=== PATIENT | female | born 1960 | race Caucasian/White ===

== ENCOUNTER 2016-12-03 16:47 | Inpatient (IN) | payer OTHER ==
--- NOTE | 2016-12-03 17:28 | PROVIDER DOCUMENTATION ---
HPI-Neurological Disorder - General Source: family - History of Present Illness-Neuro Onset/Duration: reports: this morning Timing: reports: still present Context: reports: impaired speech, facial droop Character of Altered Mental Status: reports: disoriented, confused Character of Deficits: reports: new weakness, impaired speech New weakness or altered sensation location:: reports: RUE, RLE, LUE, LLE, right facial Cognitive Baseline: alert but disoriented Associated Symptoms: reports: neck/back pain, paresthesia, slurred speech, trouble walking Similar Symptoms Previously?: Yes - Seizure First time to have a seizure?: No <Pily Mckay - Last Filed: 12/03/16 17:53> - General Source: patient, family Unable to obtain history due to:: altered (Hx per son and [id number]) - History of Present Illness-Neuro Severity: reports: severe Onset/Duration: reports: 4-6 hours ago Timing: reports: improving, gone now Context: reports: impaired speech, seizure activity. denies: found unresponsive by family, facial droop, falling Character of Altered Mental Status: reports: disoriented, confused, unresponsive , seizure activity, decreased responsiveness. denies: combative, agitated, trouble concentrating, unchanged from baseline Any recent trauma/injury?: reports: none Character of Deficits: reports: altered sensation, impaired speech, decreased ability to stand, decreased ability to walk. denies: vision problem/glaucoma, impaired swallowing, falling New weakness or altered sensation location:: reports: RUE, RLE, right facial Cognitive Baseline: alert, oriented x3 Associated Symptoms: reports: decreased ability to walk or stand, fainting, confusion, fatigue, loss of consciousness, muscle spasms, numbness in legs/feet , paresthesia, seizures, slurred speech, trouble walking, weakness. denies: short of breath, headache, dizziness, chest pain, neck/back pain, fever/chills, insomnia, nausea, diaphoretic, ringing in ears, sleepy, tingling in legs/feet, vomiting, vision changes Similar Symptoms Previously?: Yes (hx CVA in 2011) - Seizure First time to have a seizure?: No Witnessed seizure?: Yes How many seizure episodes?: 1 Episode details: reports: unknown duration, unknown number Episode Frequency: rare episodes Status Epilepticus: Yes Character of Seizure: reports: lost consciousness, generalized shaking all over , staring. denies: shaking in one area, incontinent of urine, incontinent of stool, stopped breathing Post-ictal Symptoms: reports: confusion, lost power/feeling, speech difficulty. denies: visual disturbance, headache <Chin Meeks - Last Filed: 12/10/16 17:01> - General Chief Complaint: Stroke-Like Symptoms Stated Complaint: Stroke Like Sx Time Seen by Provider: 12/03/16 17:42 Allergies/Adverse Reactions: Patient Allergies Allergy/AdvReac Type Severity Reaction Status Date / Time iodine AdvReac Intermediate HIVES Verified 12/03/16 18:50 latex AdvReac Intermediate SWELLING Verified 12/03/16 18:50 morphine AdvReac Intermediate HIVES Verified 12/03/16 18:50 oxycodone HCl * AdvReac Intermediate HIVES Verified 12/03/16 18:50 [From OxyContin] Penicillins AdvReac Intermediate HIVES Verified 12/03/16 18:50 Sulfa (Sulfonamide AdvReac Intermediate HIVES Verified 12/03/16 18:50 Antibiotics) [Sulfa(Sulfonamide Antibiotics)] Home Medications: Home Medication List Medication Instructions Recorded Confirmed Last Taken Type Clopidogrel [Plavix] 75 mg PO DAILY #30 tablet 07/26/12 12/03/16 08/11/16 Rx Tizanidine HCl [Zanaflex] 4 mg PO 4X09/29/13 12/03/16 08/11/16 History Aspirin 81 mg PO DAILY 01/13/15 12/03/16 08/11/16 History Pantoprazole [Protonix] 40 mg PO DAILY@0700 12/03/16 12/03/16 Unknown History ATORVAstatin [Lipitor] 40 mg PO QHS #60 tablet 12/08/16 Unknown Rx Acetaminophen with Codeine 1 each PO Q6H PRN PRN #0 tablet 12/08/16 Unknown Rx [Tylenol with Codeine #3] Acetaminophen with Codeine 1 each PO Q6H PRN PRN #30 tablet 12/08/16 Unknown Rx [Tylenol with Codeine #3] Brivaracetam [Briviact] 50 mg PO DAILY #60 tablet 12/08/16 Unknown Rx Duloxetine [Cymbalta] 60 mg PO QAM #60 capsule 12/08/16 Unknown Rx LISINOpril [Prinivil] 10 mg PO DAILY #60 tablet 12/08/16 Unknown Rx Lacosamide [Vimpat] 100 mg PO BID #60 tablet 12/08/16 Unknown Rx Levetiracetam [Keppra] 750 mg PO BID #60 tablet 12/08/16 Unknown Rx Oxazepam [Serax] 30 mg PO 4XDAY #120 capsule 12/08/16 Unknown Rx Topiramate [Trokendi Xr] 50 mg PO HS #60 cap.er.24h 12/08/16 Unknown Rx - History of Present Illness-Neuro Nature of Presenting Problem: 56 y/o female presents to the ER via EMS with stroke like symptoms. Pt has right facial asymmetry with bilateral upper and lower extremity weakness. ( Pily Mckay) Review of Systems - Adult - REVIEW OF SYSTEMS - ADULT Constitutional: denies: chills, fever Eyes: reports: no symptoms reported Ears, Nose, Mouth & Throat: reports: no symptoms reported Cardiovascular: reports: no symptoms reported Respiratory: reports: no symptoms reported Gastrointestinal: reports: no symptoms reported Genitourinary: reports: no symptoms reported Musculoskeletal: reports: back pain, muscle weakness Integumentary: reports: no symptoms reported Neurological: reports: numbness, slurred speech Psychiatric: reports: anxiety Endocrine: reports: no symptoms reported Hematologic/Lymphatic: reports: no symptoms reported Allergic/Immunologic: reports: no symptoms reported All Other Systems: Reviewed and Negative <Pily Mckay - Last Filed: 12/03/16 17:53> - REVIEW OF SYSTEMS - ADULT Constitutional: denies: chills, fever, fatique, night sweats, weight gain, weight loss Eyes: reports: decreased vision. denies: discharge, dry eyes, blurred vision, double vision, eye pain, redness Ears, Nose, Mouth & Throat: reports: no symptoms reported Cardiovascular: reports: syncope. denies: chest pain, edema, heart murmur, irregular heart rate, orthopnea, palpitations, poor circulation, PND Respiratory: denies: chronic cough, cough, dyspnea on exertion, excessive sputum production, hemoptysis, pleurisy, shortness of breath, wheezing Gastrointestinal: reports: no symptoms reported Genitourinary: reports: no symptoms reported Musculoskeletal: reports: muscle weakness, other (decreased RU/LE motor strength ). denies: bone pain, back pain, frequent leg cramps, joint pain, joint swelling, muscle aches, neck pain Integumentary: reports: no symptoms reported Neurological: reports: numbness, paresthesia, seizure, slurred speech, syncope, tremors. denies: ataxia, dizziness/vertigo, headache/migraines, loss of balance Psychiatric: reports: no symptoms reported Endocrine: reports: no symptoms reported Hematologic/Lymphatic: reports: no symptoms reported Allergic/Immunologic: reports: no symptoms reported All Other Systems: Reviewed and Negative <Chin Meeks - Last Filed: 12/10/16 17:01> Past History - Adult - PAST MEDICAL HISTORY-ADULT Review of Records: reports: Nursing Assessment Review, Medications Reviewed Musculoskeletal: reports: arthritis, chronic pain, fibromyalgia, intervertebral disc disease Neurological: reports: CVA, speech difficulty Psychiatric: reports: depression - PRIOR SURGERIES/PROCEDURES Surgical/Procedure History: reports: reviewed, not pertinent - PRIOR HOSPITALIZATIONS Prior Hospitalizations: reports: for similar symptoms - IMMUNIZATION STATUS Childhood Immunizations: See Nurse Assessment Flu Vaccine: See Nurse Assessment - FAMILY HISTORY Family History: CAD over 55 yo <Pily Mckay - Last Filed: 12/03/16 17:53> - PAST MEDICAL HISTORY-ADULT Review of Records: reports: Nursing Assessment Review, Medications Reviewed - IMMUNIZATION STATUS Childhood Immunizations: See Nurse Assessment Flu Vaccine: See Nurse Assessment <Chin Meeks - Last Filed: 12/10/16 17:01> Physical Exam- Neurological - Physical Exam-Neuro General Appearance: alert, no apparent distress, slow to respond Eye Exam: bilateral eye: normal inspection, PERRL HENMT: normocephalic/atraumatic, moist mucous membranes Head Injury: no evidence of injury. 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 negative: normal finger to nose Motor/Sensory: weak motor strength RUE, weak motor strength LUE, weak motor strength RLE, weak motor strength LLE Neurologic: aphasia (expressive), facial droop (right sided, worse from baseline per family) Integumentary: normal color, warm/dry Psych/Mental Status: disoriented x 3, anxious - [place]ow Coma Scale Best Eye Response: (4) open spontaneously Best Verbal Response: (4) confused conversation Best Motor Response: (4) withdraws to pain <Pily Mckay - Last Filed: 12/03/16 17:53> - Physical Exam-Neuro Initial Vital Signs Reviewed: Yes General Appearance: alert, moderate distress, lethargic, slow to respond. negative: appears well, no apparent distress, mild distress, severe distress, cachetic, obese, thin, anxious, obtunded, combative Eye Exam: bilateral eye: normal inspection, PERRL, EOMI HENMT: normocephalic/atraumatic, moist mucous membranes, normal ENT inspection Head Injury: no evidence of injury. negative: active bleeding, contusions Respiratory: chest non-tender, lungs clear, normal breath sounds. negative: respiratory distress, decreased breath sounds, accessory muscle use, wheezing Cardiovascular: normal peripheral pulses, regular rate, rhythm. negative: bradycardia, tachycardia, irregularly irregular Abdominal Exam: normal bowel sounds, soft, tenderness (RLQ on palpation). negative: non tender Lymphatic: no adenopathy. 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 negative: normal speech, abnormal pupil position, gaze palsy, hearing deficit (R), hearing deficit (L) Motor/Sensory: weak motor strength RUE, weak motor strength RLE. negative: weak motor strength LUE, weak motor strength LLE Neurologic: facial droop (R side), motor weakness (R upper/lower emtremities), sensory deficit (R sided body numbness) Psych/Mental Status: normal thought content, normal thought process, oriented x 3, disheveled, depressed affect - [place]ow Coma Scale Best Eye Response: (4) open spontaneously Best Verbal Response: (5) oriented Best Motor Response: (6) obeys commands <Chin Meeks - Last Filed: 12/10/16 17:01> Progress <Pily Mckay - Last Filed: 12/03/16 17:53> - REASSESSMENT Reassessment #1 Time Reassessed: 18:27 Status: other (Dr. Barrera reassessed pt and family gace report to Dr. Barrera. Dr. Bruce zambrano hospitalist.) - EKG 1 Time of EKG reading by physician:: 18:58 EKG Read and Signed by:: Domenic Barrera EKG Interpretation (*Must complete 3 of following elements*): Abnormal (ST & T wave abnormality, consider anterolateral ischemia) Rate: 83 Rhythm: Normal sinus rhythm with sinus arrythmia - CT/MRI 1 CT Study: Head Impression: See EMR Report (No VAP; No hemorrhage or mass effect) - CONSULTS/PCP/HOSPITALIST Notification #1 *Consult/PCP/Hospitalist*: Dr. Aquino (hospitalist) Time Discussed: 19:42 Consult Disposition: Admit - CHANGE OF SHIFT REPORT (ED Provider) Report Given and Care Transferred to:: Dr. Barrera Time of Transfer: 18:00 Items Pending: Labs, CT/MRI Results <Chin Meeks - Last Filed: 12/10/16 17:01> - PLAN OF CARE/RESULTS Progress/Plan/Lab Results: 1828: Dr. Bruce zambrano hospitalist Vital Signs - 24 hr 12/03/16 12/03/16 17:04 18:31 Temperature 98.2 F Pulse Rate 91 H 69 Respiratory 16 16 Rate Blood Pressure 188/108 149/90 O2 Sat by Pulse 98 99 Oximetry Orders Category Date Time Status Cardiac Monitoring DIRECTED Care 12/03/16 17:36 Active Finger Stick Blood Sugar (ED) DIRECTED Care 12/03/16 17:36 Active Misc. NRSG Communication Order DIRECTED Care 12/03/16 17:36 Active Oxygen Therapy- ED Nursing DIRECTED Care 12/03/16 17:36 Active Saline Loc NOW Care 12/03/16 17:36 Active CHEST-PORTABLE [RAD] Stat Exams 12/03/16 17:36 Taken HEAD W/O CONTRAST [CT] Stat Exams 12/03/16 16:48 Draft CBC WITH ELECTRONIC DIFF [HEME] Stat Lab 12/03/16 17:23 Completed COMPREHENSIVE METABOLIC PANEL [CHEM] Stat Lab 12/03/16 17:23 Completed PROTIME WITH INR [COAG] Stat Lab 12/03/16 17:23 Completed PTT [COAG] Stat Lab 12/03/16 17:23 Completed TROPONIN T Stat Lab 12/03/16 17:23 Completed URINALYSIS W/POSS RFLX CULT [URINALYSIS] Stat Lab 12/03/16 17:35 Completed URINE DRUG SCREEN Stat Lab 12/03/16 17:35 Completed EKG [EKG] Stat Ther 12/03/16 17:36 Ordered Laboratory Tests 12/03/16 12/03/16 12/03/16 17:23 17:23 17:23 WBC 6.94 RBC 4.36 Hgb 14.0 Hct 41.6 MCV 95.4 MCH 32.1 H MCHC 33.7 RDW Std Deviation 13.3 Plt Count 215 MPV 10.8 H Neut % (Auto) 66.0 Lymph % (Auto) 25.6 [place] % (Auto) 5.9 Eos % (Auto) 2.2 Baso % (Auto) 0.3 Neut # (Auto) 4.58 Lymph # (Auto) 1.78 [place] # (Auto) 0.41 Eos # (Auto) 0.15 Baso # (Auto) 0.02 PT 10.5 INR 0.99 PTT (Actin FS) 24.5 Sodium 138 Potassium 3.9 Chloride 102 Carbon Dioxide 21 L Anion Gap 15 BUN 15 Creatinine 0.9 Estimated GFR/1.73 m2 > 60 BUN/Creatinine Ratio 17 Glucose 108 H Calculated Osmolality 277 Calcium 9.2 Total Bilirubin 0.45 AST 42 H ALT 64 H Alkaline Phosphatase 99 Troponin T Total Protein 7.6 Albumin 4.4 Globulin 3.2 Albumin/Globulin Ratio 1.4 Urine Source Urine Color Urine Turbidity Urine pH Ur Specific [place] Urine Protein Ur Glucose (Stick) Ur Ketones (Stick) Urine Blood Urine Nitrite Urine Bilirubin Urobilinogen Dipstick Urine Leukocytes Urine WBC (Auto) Urine RBC (Auto) U Epithel Cells (Auto) Urine Bacteria (Auto) Urine Opiates Screen Ur Oxycodone Screen Ur Methadone, Qual Ur Barbiturates Screen Ur Phencyclidine Scrn Ur Amphetamines Screen U Benzodiazepines Scrn Urine Cocaine Screen U Cannabinoids Screen 12/03/16 12/03/16 12/03/16 17:23 17:35 17:35 WBC RBC Hgb Hct MCV MCH MCHC RDW Std Deviation Plt Count MPV Neut % (Auto) Lymph % (Auto) [place] % (Auto) Eos % (Auto) Baso % (Auto) Neut # (Auto) Lymph # (Auto) [place] # (Auto) Eos # (Auto) Baso # (Auto) PT INR PTT (Actin FS) Sodium Potassium Chloride Carbon Dioxide Anion Gap BUN Creatinine Estimated GFR/1.73 m2 BUN/Creatinine Ratio Glucose Calculated Osmolality Calcium Total Bilirubin AST ALT Alkaline Phosphatase Troponin T < 0.010 Total Protein Albumin Globulin Albumin/Globulin Ratio Urine Source CATH Urine Color YELLOW Urine Turbidity CLEAR Urine pH 7.0 Ur Specific [place] 1.006 Urine Protein NEGATIVE Ur Glucose (Stick) NEGATIVE Ur Ketones (Stick) TRACE A Urine Blood NEGATIVE Urine Nitrite NEGATIVE Urine Bilirubin NEGATIVE Urobilinogen Dipstick NORMAL Urine Leukocytes NEGATIVE Urine WBC (Auto) <10 Urine RBC (Auto) <10 U Epithel Cells (Auto) <10 Urine Bacteria (Auto) NEGATIVE Urine Opiates Screen PRESUMPTIVE POSITIVE A Ur Oxycodone Screen NONE DETECTED Ur Methadone, Qual NONE DETECTED Ur Barbiturates Screen NONE DETECTED Ur Phencyclidine Scrn NONE DETECTED Ur Amphetamines Screen NONE DETECTED U Benzodiazepines Scrn NONE DETECTED Urine Cocaine Screen NONE DETECTED U Cannabinoids Screen NONE DETECTED (Chin Meeks) Departure <Pily Mckay - Last Filed: 12/03/16 17:53> - Departure Time of Disposition Order: 18:30 Certified Medical Emergency: Emergent <Chin Meeks - Last Filed: 12/10/16 17:01> - Departure DIAGNOSIS: Seizure disorder Disposition: ADMITTED INPATIENT 09 Condition: Stable Attestation - Scribe Verification/Attestation Scribe:: Pily Mckay Acting as Scribe for:: Jordan Frost Scribe documention review:: This chart was documented by a scribe and accurately reflects the service the provider performed and the decisions made by the provider. - Scribe Verification/Attestation #2 Shift Change Time: 18:00 <Pily Mckay - Last Filed: 12/03/16 17:53> - Scribe Verification/Attestation Scribe:: Chin Meeks Acting as Scribe for:: Domenic Barrera Scribe documention review:: This chart was documented by a scribe and accurately reflects the service the provider performed and the decisions made by the provider. - Scribe Verification/Attestation #2 Shift Change Time: 18:00 Scribe Name: Chin Meeks Acting as Scribe for:: Domenic Barrera <Chin Meeks - Last Filed: 12/10/16 17:01> Physician Attestation - NIH Stroke Scale Level of Consciousness: 0-Alert LOC Questions (ask month and age): 2-Both Incorrect (inaudible) LOC Commands (ask to open & close eyes;make a fist, let go): 0-Obeys Both Correctly Best Gaze (horizontal eye movement): 0-Normal Visual (use finger movement, counting or visual threat): 0-No Visual Loss Facial Palsy (show teeth or raise eyebrows & close eyes tght: 1-Minor Paralysis Motor Function-left arm: 4-No Movement Motor Function-right arm: 2-Some Effort Against [place] Motor Function-left le-Some Effort Against [place] Motor Function-right le-No Movement Limb Ataxia([id number], or heel to pineda): 0-Untestable Best Language(name item/read sentence.Ex-[place] to [place]): 1-Mild to Moderate Aphasia Dysarthria(Pt read words or say words Ex.Mama,Tip-Top,Thanks: 1-Mild-Mod Slurring Words Extinction and Inattention: 0-Normal <Pily Mckay - Last Filed: 12/03/16 17:53>
[2016-12-03 17:45] LABS: MANUAL DIFF NEEDED? NO
--- NOTE | 2016-12-03 17:45 | Diag Imaging Result Document ---
PROCEDURE NAME: HEAD W/O CONTRAST - 12/03/2016 CT HEAD WITHOUT CONTRAST: FINDINGS: A dose reduction protocol was used. Compared to 08/11/2016. There are artifacts from metallic implants posterior to the left ear which substantially limit detail beneath the implant, similar to the previous exam. There is no evidence of intracranial hemorrhage, mass effect, midline shift, or hydrocephalus. There is no evidence of infarct, although acute infarcts may not be immediately visible. There is no skull fracture. There is a mucus retention cyst noted at the inferior right maxillary sinus. There is apparent periodontal disease in the posterior right maxilla. IMPRESSION: 1. Metallic implant device posterior to the left ear which produces artifact, limiting detail beneath the device. 2. No visible acute process. 3. No hemorrhage or mass effect.
[2016-12-03 17:46] LABS: URINE CULTURE NEEDED? NO; URINE MICRO REVIEW NEEDED? NO; URINE SOURCE CATH
[2016-12-03 17:53] LABS: BILIRUBIN URINE NEGATIVE (NEGATIVE); BLOOD URINE NEGATIVE (NEGATIVE); COLOR YELLOW; GLUCOSE URINE NEGATIVE (NEGATIVE); LEUKOCYTES URINE NEGATIVE (NEGATIVE); NITRITE URINE NEGATIVE (NEGATIVE); PROTEIN URINE NEGATIVE (NEGATIVE); SP GRAVITY URINE 1.006; TURBIDITY URINE CLEAR (CLEAR); UROBILINOGEN URINE NORMAL (NORMAL)
[2016-12-03 17:53] LABS: BASO% 0.3 % (0.0-0.8); EOS# 0.15 X1000 (0.0-0.7); EOS% 2.2 % (0.0-10.0); HEMATOCRIT 41.6 % (37.0-47.0); LYMPH# 1.78 X1000 (1.2-3.4); LYMPH% 25.6 % (20.5-51.1); MCH 32.1 PG (27-31); MCHC 33.7 g/dL (33-37); MCV 95.4 FL (81-99); MONO# 0.41 X1000 (0.11-0.59); MONO% 5.9 % (1.7-9.3); MPV 10.8 FL (7.4-10.4); PLT 215 X1000 (130-400); RBC 4.36 XMIL (4.2-5.4)
[2016-12-03 17:54] LABS: UR EPITHELIAL CELLS <10 /HPF (<10); URINE BACTERIA NEGATIVE /HPF; URINE RBC <10 /HPF (<10); URINE WBC <10 /HPF (<10)
[2016-12-03 18:02] LABS: UR AMPHETAMINES QUAL NONE DETECTED (NONE DETECT); UR BARBITUATES QUAL NONE DETECTED (NONE DETECT); UR BENZODIAZEPIN QUAL NONE DETECTED (NONE DETECT); UR CANNABINOIDS QUAL NONE DETECTED (NONE DETECT); UR COCAINE QUAL NONE DETECTED (NONE DETECT); UR METHADONE QUAL NONE DETECTED (NONE DETECT); UR OPIATES QUAL PRESUMPTIVE POSITIVE (NONE DETECT); UR OXYCODONE QUAL NONE DETECTED (NONE DETECT); UR PCP QUAL NONE DETECTED (NONE DETECT)
[2016-12-03 18:26] LABS: AGAP 15; ALBUMIN 4.4 g/dL (3.5-5.0); ALKALINE PHOSPHATASE 99 U/L (32-104); BUN 15 mg/dL (8-22); CALCIUM 9.2 mg/dL (8.8-10.2); CHLORIDE 102 mmol/L (98-107); COSMO 277; GOT 42 U/L (10-30); GPT 64 U/L (10-36); POTASSIUM 3.9 mmol/L (3.5-5.1); SODIUM 138 mmol/L (136-145); TCO2 21 mmol/L (25-35); TOTAL BILIRUBIN 0.45 mg/dL (0.20-1.00); TOTAL PROTEIN 7.6 g/dL (6.3-8.3)
[2016-12-03 18:37] LABS: INR 0.99; PROTIME 10.5 Seconds (9.2-11.7); PTT 24.5 Seconds (22.0-36.0)
[2016-12-03] MEDS ORDERED: ZANAFLEX PO SCH (21:00)
--- NOTE | 2016-12-03 21:21 | HISTORY AND PHYSICAL ---
PRIMARY CARE PROVIDER: Yuri Chaudhry. NEUROLOGIST: Dr. Cerda in [place]. CHIEF COMPLAINT: Stroke-like symptoms. HISTORY OF PRESENT ILLNESS: This is a 56-year-old female who presents with son at bedside. She has a history of previous CVA. She has deafness with a cochlear implant, history of bipolar disorder, seizure disorder, asthma and GERD. Today she was reportedly walking and talking as per her normal prior to having an episode where she had altered mentation and a shaking of her head for which she was unresponsive. According to the son after this she "went out" meaning that from what I understand that she fell backwards onto the bed and did not respond. Since that time she has had right-sided facial asymmetry which is greater than normal. Also her right upper and lower extremity are flaccid on examination. A CT scan was performed which did not show an intracranial hemorrhage or acute CVA however given limitations of CT diagnosing an acute CVA this does not rule it out. The patient is not a candidate for MRI related to her cochlear implants. She will be admitted for further observation and treatment. PAST MEDICAL HISTORY: See HPI. PREVIOUS SURGICAL HISTORY: Four knee surgeries, bilateral hip surgery, 9 back surgeries, C-spine fusion, carpal tunnel surgery, 7 right ear surgeries, 1 left ear surgery with cochlear implant. ALLERGIES: Iodine, codeine, Percocet, Lorcet, morphine, latex, sulfa and penicillin. SOCIAL HISTORY: She was a 1 pack a day smoker for many years. Quit roughly 1-1/2 years ago. Occasionally has a glass of red wine. No illicit drug use or abuse. Lives at home with son and [id number]. HOME MEDICATIONS: 1. Serax 30 mg p.o. 4 times a day. 2. Plavix 75 mg p.o. daily. 3. Cymbalta 60 mg p.o. q.a.m. 4. Zanaflex 4 mg p.o. 4 times a day. 5. Aspirin 81 mg p.o. daily. 6. Vimpat 100 mg p.o. b.i.d. 7. Briviact 50 mg p.o. daily. 8. Protonix 40 mg p.o. daily. 9. Topiramate 50 mg p.o. daily. REVIEW OF SYSTEMS: Fourteen point review of systems technically difficult as the patient is deaf. She does read lips somewhat. Son at bedside to help with review of systems. Other than a left a leg cramp she denies chest pain, nausea, vomiting, diarrhea, hematuria, dysuria, hematochezia, hematemesis, melena. Pertinent positives for admission are listed above in the HPI. PHYSICAL EXAMINATION: VITAL SIGNS: Temperature 98.2 degrees, pulse 69, respirations 16, blood pressure 149/90, oxygen saturation 99% on 2 L nasal cannula. GENERAL: A 56-year-old female lying in the ER stretcher. Family at bedside. She is alert and oriented x4. However related to her hearing impairment she does have a delayed response. Sometimes the son has to ask her questions. HEENT: Head is atraumatic, normocephalic. Pupils equal, round, reactive to light. Extraocular eye movements intact. Sclerae is anicteric. Conjunctivae is pink. Oral mucosa is moist. NECK: Supple. No JVD. No thyromegaly. Trachea is midline. CARDIAC: Regular rhythm, S1-S2 appreciated. No murmurs, gallops, rubs. LUNGS: Clear to auscultation bilaterally. No rhonchi, wheezes, rales. ABDOMEN: Protuberant, soft, nondistended, nontender. Bowel sounds hypoactive all 4 quadrants. No pulsatile mass. No organomegaly could be palpated. EXTREMITIES: No clubbing, cyanosis, or edema. Left upper and lower extremity are flaccid. Right upper and lower extremity trace movement, right upper extremity can be held against gravity momentarily. SKIN: Warm, dry and intact. No acute lesions or rash. NEUROLOGICAL: As noted above. Alert and oriented x4. Mild dysarthria. However this may be related to her hearing impairment. Right upper and lower extremity is flaccid. Patient is unable to shrug right shoulder. Left upper extremity has trace movement and can be held against gravity for a few seconds, trace right lower extremity movement. Right facial droop noted. DIAGNOSTIC DATA: CT of the head noted metallic implants which produced artifact limiting detail beneath the device. No acute intracranial process or hemorrhage was noted. LABORATORY DATA: Grossly normal. CBC, coagulations within normal limits. Glucose 108, AST 42, ALT 64. Urine unremarkable. Toxicology screen is positive for opiates. ASSESSMENT: 1. Cerebrovascular accident with right-sided deficit. 2. Gastroesophageal reflux disease. 3. Seizure disorder. 4. Bipolar disorder. 5. Asthma. PLAN: Admit patient to the medical floor. Continue Plavix and aspirin. Will order echocardiogram and carotid Doppler related to patient's inability to have a MRI. CT scan should be repeated at some point in the next 48 hours. 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 Will consider consultation on Monday if symptoms persist or have not improved. Will start a statin therapy. Have ordered lipid panel for a.m. Neurological checks q.2 hours. The patient was mildly hypertensive. Will continue to monitor but will not treat unless systolic blood pressure is greater than 210. Continue home medications for seizure disorder and bipolar disorder with the exception of Zanaflex muscle relaxant. Further recommendation per patient clinical course. Dictated by MARVIN Quinonez for Twan Aquino MD
[2016-12-03] MEDS ORDERED: TYLENOL PO PRN (21:55)
[2016-12-03] MEDS ORDERED: ATIVAN IV PRN (21:55)
[2016-12-03] MEDS ORDERED: ZOFRAN IV PRN (21:55)
[2016-12-03] MEDS: SERAX PO SCH (22:32)
[2016-12-03] MEDS: NS 1,000 ML IV SCH (22:32)
[2016-12-03] MEDS: VIMPAT PO SCH (22:32)
[2016-12-03] MEDS: LIPITOR PO SCH (22:32)
[2016-12-03] MEDS: LOVENOX SUBQ SCH (22:32)
[2016-12-04 02:37] LABS: URINE CULTURE NEEDED? NO; URINE MICRO REVIEW NEEDED? NO; URINE SOURCE CATH
[2016-12-04 02:40] LABS: BILIRUBIN URINE NEGATIVE (NEGATIVE); BLOOD URINE NEGATIVE (NEGATIVE); COLOR YELLOW; GLUCOSE URINE NEGATIVE (NEGATIVE); LEUKOCYTES URINE NEGATIVE (NEGATIVE); NITRITE URINE NEGATIVE (NEGATIVE); PH URINE 6.5; PROTEIN URINE NEGATIVE (NEGATIVE); SP GRAVITY URINE 1.019; TURBIDITY URINE CLEAR (CLEAR); UROBILINOGEN URINE NORMAL (NORMAL)
[2016-12-04 02:41] LABS: UR EPITHELIAL CELLS <10 /HPF (<10); URINE BACTERIA NEGATIVE /HPF; URINE RBC <10 /HPF (<10); URINE WBC <10 /HPF (<10)
[2016-12-04 06:33] LABS: MANUAL DIFF NEEDED? NO
[2016-12-04 06:39] LABS: BASO% 0.2 % (0.0-0.8); EOS# 0.08 X1000 (0.0-0.7); EOS% 0.9 % (0.0-10.0); HEMATOCRIT 43.3 % (37.0-47.0); HEMOGLOBIN 14.5 g/dL (12.0-16.0); LYMPH% 29.2 % (20.5-51.1); MCH 31.5 PG (27-31); MCHC 33.5 g/dL (33-37); MCV 93.9 FL (81-99); MONO# 0.44 X1000 (0.11-0.59); MONO% 5.1 % (1.7-9.3); MPV 10.8 FL (7.4-10.4); NEUT% 64.6 % (42.2-75.2); PLT 230 X1000 (130-400); RBC 4.61 XMIL (4.2-5.4)
[2016-12-04 06:58] LABS: AGAP 19; BUN 13 mg/dL (8-22); CALCIUM 9.2 mg/dL (8.8-10.2); CHLORIDE 109 mmol/L (98-107); COSMO 289; POTASSIUM 3.9 mmol/L (3.5-5.1); SODIUM 145 mmol/L (136-145); TCO2 17 mmol/L (25-35)
--- NOTE | 2016-12-04 07:17 | Diag Imaging Result Document ---
PROCEDURE NAME: CHEST-PORTABLE - 12/03/2016 PORTABLE CHEST: COMPARISON: Compared to 09/29/2013. FINDINGS: The lungs are well expanded. The heart is not enlarged. The vessels are not distended. No consolidation. No pleural effusions identified. Minimal scarring in the left base. IMPRESSION: Negative chest.
[2016-12-04] MEDS: NS 1,000 ML IV SCH (10:59)
[2016-12-04] MEDS: PLAVIX PO SCH (11:14)
[2016-12-04] MEDS: PROTONIX PO SCH (11:14)
[2016-12-04] MEDS: CYMBALTA PO SCH (11:14)
[2016-12-04] MEDS: ASPIRIN PO SCH (11:14)
[2016-12-04] MEDS: VIMPAT PO SCH (11:15)
[2016-12-04] MEDS: SERAX PO SCH ×4 (11:15→20:51)
[2016-12-04] MEDS ORDERED: VIMPAT IV SCH (11:15)
[2016-12-04] MEDS ORDERED: MORPHINE IV PRN (11:43)
--- NOTE | 2016-12-04 15:02 | PROGRESS NOTE ---
DATE: 12/04/2016 SUBJECTIVE: Patient shows mild slurred speech. As per son who is at bedside, the patient denies any pain, any headache, nausea. Daughter who is at bedside reports that she was having some involuntary movements in the neck that lasted less than a minute. OBJECTIVE: Vital Signs: Temperature 98.5 degrees, heart rate 77, respiratory rate 20, blood pressure 167/87, O2 saturation 99% on room air. General Examination: This is a 56-year-old female lying in bed, in no acute distress. HEENT: Head is normocephalic, atraumatic. Anicteric sclerae. Pale conjunctivae. Mucous membranes moist. Neck: Supple. No JVD noted. No carotid bruits. No lymphadenopathy. No thyromegaly. Cardiovascular: S1, S2 heard. No murmurs, gallops, or rubs. Regular rate and rhythm. Respiratory: Clear bilaterally to auscultation. No work of breathing or using accessory muscles. Abdomen: Soft. Nontender to palpation. Nondistended. Bowel sounds present. No organomegaly. Extremities: No clubbing, cyanosis, or edema. Peripheral pulses present in both legs. Neurological: Right-sided hemiparesis. Mild right facial droop noted. LABORATORY DATA: CBC and BMP are completely unremarkable. ASSESSMENT: 1. Cerebrovascular accident with right-sided hemiparesis. 2. Seizure disorder. 3. Bipolar disorder. 4. Asthma. 5. Gastroesophageal reflux disease. PLAN: Patient was admitted to the hospital for CVA and right-sided hemiparesis noted. The CT of the head done yesterday showed metallic implant device posterior to the left ear with no visible acute process. No hemorrhagic mass noted. The patient is stable. No new neurological symptoms noted. Also patient had a seizure. Because we are suspecting that she has swallowing problems, all p.o. medications have been held and her home medications, in this case Vimpat and brivaracetam have been changed to levetiracetam IV. The patient is also on Ativan p.r.n. We will consult Dr. Echevarria regarding this seizure and CVA. At this point, physical therapy has been consulted. Swallow evaluation will be done tomorrow. In anticipation for further disposition, social services manager has been consulted for possible rehab placement.
[2016-12-04] MEDS: PATIENT'S OWN MED PO SCH ×2 (15:10)
[2016-12-04] MEDS: DILAUDID IV PRN ×2 (15:11→22:20)
[2016-12-04] MEDS: KEPPRA 750 MG in NS 100 ML IV SCH (15:11)
--- NOTE | 2016-12-04 16:43 | ECHO REPORT ---
ORDER DATE: 12/04/2016 INTERPRETING PHYSICIAN: Dr. Monteiro REQUESTING PHYSICIAN: CLINICAL INDICATIONS: This is a 56-year-old with stroke, asthma. M-MODE MEASUREMENTS: Right ventricle: 2.7 cm. Left ventricle end diastole: 3.3 cm. Left ventricle end systole: 2.6 cm. Posterior wall: 1.0 cm. Interventricular septum: 1.0 cm. Left atrium: 3.0 cm. Aortic root: 3.0 cm. SUMMARY OF 2-DIMENSIONAL IMAGIN. This study is technically difficult. The patient has limited acoustic windows. She has a very prominent epicardial fat pad. 2. The left ventricular function is normal. Ejection fraction is estimated at 60%. The chamber is not dilated. 3. Right ventricle is normal. 4. Aortic valve is morphologically normal. Color flow mapping is unremarkable. 5. Mitral valve appears to be morphologically normal. Color flow mapping is unremarkable. 6. Pulse wave Doppler of mitral inflow is normal. 7. Tissue Doppler of septal and lateral mitral annulus averages 12 cm. 8. There is no diastolic dysfunction. 9. The tricuspid valve looks normal. Color flow mapping is unremarkable. 10.Inferior vena cava is not dilated. 11.There is no pulmonary hypertension. 12.Pulmonic valve looks normal. Color flow mapping is unremarkable. CONCLUSIONS: This study appears to be grossly within normal limits. It was technically difficult. Clinical correlation is recommended.
[2016-12-04] MEDS: NS IV SCH (17:37)
[2016-12-04] MEDS: VIMPAT IV SCH (17:37)
[2016-12-04] MEDS ORDERED: MELATONIN PO ONE (20:08)
[2016-12-04] MEDS: LIPITOR PO SCH (20:51)
[2016-12-04] MEDS: LOVENOX SUBQ SCH (20:55)
[2016-12-05] MEDS: KEPPRA 750 MG in NS 100 ML IV SCH ×2 (00:56→14:23)
[2016-12-05] MEDS: NS 1,000 ML IV SCH ×2 (01:02→18:31)
[2016-12-05] MEDS: NS IV SCH ×2 (05:45→18:25)
[2016-12-05] MEDS: VIMPAT IV SCH ×2 (05:45→18:25)
[2016-12-05] MEDS: DILAUDID IV PRN ×2 (06:15→12:08)
[2016-12-05] MEDS: PROTONIX PO SCH (06:16)
[2016-12-05] MEDS: CYMBALTA PO SCH (10:49)
[2016-12-05] MEDS: SERAX PO SCH ×4 (10:49→20:21)
[2016-12-05] MEDS: ASPIRIN PO SCH (10:49)
[2016-12-05] MEDS: PLAVIX PO SCH (10:49)
[2016-12-05] MEDS: PRINIVIL PO SCH (10:50)
[2016-12-05] MEDS: PATIENT'S OWN MED PO SCH ×2 (14:24→14:25)
--- NOTE | 2016-12-05 15:25 | CONSULTATION ---
DATE OF CONSULTATION: 12/05/2016 HISTORY OF PRESENT ILLNESS: Ms. Meyer is 56 years old and she has a complicated neurologic history. She presents this time with history suggestive of generalized seizure followed by increased right hemiplegia. She reports first neurologic problem may have been in childhood or teens with some temporary mental lapses. She cannot describe that precisely. She told me that she believes seizure was considered at some point much later but was not diagnosed at young age. Next neurologic event she reports is "3 mini strokes" occurring over period of about a year about 4 years ago, each time causing right-sided weakness. Each time, she improved in a matter of days or weeks. She had residual minimal right hemiparesis following the last episode, by her report. She is right-handed. She did not notice definite language disturbance with these previous episodes. She had cochlear implant placed on the left. She began to have "more major seizures" and "bigger seizures" approximately 8 or 10 months ago. These have been somewhat variable. She reports sometimes she simply "goes out" or "go to sleep and they can't wake me up." Other times family has apparently reported generalized jerking movement. Some of these episodes have been associated with an increase in her baseline right hemiparesis following the episode and others have not. She was started on medicine for seizure control several months ago. Her medicines have been adjusted and added to. Her home medicine list recorded in the computer includes topiramate 50 mg at bedtime, Vimpat 100 mg b.i.d., Briviact 50 mg daily. She believes she has not missed any recent doses. She also has oxazepam reported 30 mg q.i.d. for anxiety. She told me she had not missed any of those doses but her urine drug screen is negative for benzodiazepines this admission. Home medicine list also includes hydromorphone and her urine drug screen is positive for opiates this admission. Noncontrast CT of the head is reported to show the metal from her implant on the left side but no changes compared to August 2016 scan. Lab work shows nothing that generally would be associated with seizure or encephalopathy. She has been afebrile. Heart rate was initially in the 90s, mostly 60s and 70s since admission. Systolic blood pressures were 180s initially, 150s to 180s since admission. On exam, Ms. Meyer is awake, alert, attentive. She seems appropriate. Speech is only very slightly impaired considering her hearing deficit. She communicated very well. Language function is intact. She has full visual field tested grossly by confrontational finger counting. Extraocular movements are full. Facial motility is symmetric. Gag is intact. Tongue is midline. She demonstrated good power in the left limbs. There were some inconsistencies in testing the right limbs. She did not demonstrate any voluntary power in the right limbs but when I passively raised her arm, she did not allow it to drop immediately. Tone is equal in the limbs on the right and left. Plantar response is silent bilaterally. Reflexes are 2+ at the ankles bilaterally. She reports absent proprioception at the right great toe and normal proprioception at the left great toe. She reports diminished pinprick appreciation over the right limbs compared to the left. I did not ask her to stand. IMPRESSION: 1. History sounds like seizure. Reason for seizure is not certain. I do not know if this is related to focus associated with her implant, or something preexisting the implant. 2. Reported history of strokes. It seems unlikely that she would have strokes at such young age but that is her report. In retrospect, I wonder if some of these might have been seizures. 3. Some discrepancy in the urine drug screen negative for benzodiazepine and her report that she takes oxazepam regularly. I will check with the lab to see if oxazepam would show up on our benzodiazepine screen. If this is a postictal hemiparesis, we should see her improve with time. Unfortunately, MRI is not an option to make sure there is not additional stroke. Negative CT is reassuring and we might repeat that later. I would continue her current seizure medicine doses, consider increase either Briviact or Vimpat when she is swallowing, be on the lookout for benzodiazepine withdrawal, which should be adequately prophylaxed with her IV lorazepam ordered as needed. Thanks for asking me to see Ms. Meyer. [facility]
--- NOTE | 2016-12-05 15:31 | PROGRESS NOTE ---
DATE: 12/05/2016 SUBJECTIVE: This patient is still having mild slurred speech. The family member is at the bedside. She is not complaining of any nausea, vomiting, diarrhea, or constipation. They are requesting to be transferred to [facility] because Dr. Zamudio, her neurologist, is over there and he has been doing a lot of test. Actually they think that this patient may have MS. Dr. Echevarria evaluated this patient, pending his recommendations. Even though we have a neurologist in-house, they still are requesting to be transferred to [place]. I personally called [facility] to request the transfer but they said that they do not have any beds available right now. I will try again in the afternoon and tomorrow. For now, this patient is stable. OBJECTIVE: Vital Signs: Temperature 98.3 degrees, pulse 69, respiratory rate 16, blood pressure 171/93, oxygen saturation 99 on room air. HEENT: Head normocephalic. No trauma. PERRLA. Mild right facial droop noted. Neck: Supple. No JVD. No masses. Central trachea. Cardiovascular: RRR. No murmurs. No gallops. No rubs. Chest: Clear to auscultation. No wheezing. No rales. Abdomen: Soft, nontender, nondistended. No hepatosplenomegaly. Extremities: No clubbing. No cyanosis. No edema. Neurological: This patient has right-sided hemiparesis and mild right facial droop noted. Also she has some dysarthria. This patient is complaining of left hand numbness as well. LABORATORY: No lab work today. I will ask for a CBC and CMP tomorrow. ASSESSMENT AND PLAN: 1. History of cerebrovascular accident with right-sided hemiparesis. This is old, no acute changes, but she is complaining of left arm numbness and apparently the slurred speech has been getting worse. No new hemorrhagic lesion noted on the CT scan. We cannot performed a MRI or MRA of the head because this patient has a left metallic implant device posterior to the left ear. We will follow the recommendations of the neurology department. 2. Seizure disorder. Apparently this patient has been getting seizures at home. This patient is getting Keppra at this moment since the moment of admission she has not been having any kind of seizures. For now, we will continue with the same medications. Because of the seizures and also CVA, I will ask for physical therapy evaluation. 3. Bipolar disorder. Continue with the same management. 4. Asthma. She is not complaining of shortness of breath or wheezing. Continue to monitor. 5. Gastroesophageal reflux disease. This patient is on pantoprazole p.o. daily. Will continue with the same treatment.
[2016-12-05] MEDS ORDERED: NS 1,000 ML IV SCH (18:36)
[2016-12-05] MEDS: LOVENOX SUBQ SCH (20:20)
[2016-12-05] MEDS: LIPITOR PO SCH (20:21)
[2016-12-06] MEDS: KEPPRA 750 MG in NS 100 ML IV SCH ×2 (02:00→13:17)
[2016-12-06] MEDS: LOVENOX SUBQ SCH ×2 (03:22→20:42)
[2016-12-06] MEDS: VIMPAT IV SCH ×2 (05:07→17:42)
[2016-12-06] MEDS: NS IV SCH ×2 (05:07→17:42)
[2016-12-06] MEDS: PROTONIX PO SCH ×2 (05:11→08:46)
[2016-12-06 06:38] LABS: MANUAL DIFF NEEDED? NO
[2016-12-06 06:46] LABS: BASO% 0.2 % (0.0-0.8); EOS% 0.9 % (0.0-10.0); HEMATOCRIT 39.5 % (37.0-47.0); HEMOGLOBIN 13.2 g/dL (12.0-16.0); IMM GRAN# 0.03 X1000 (0.0-0.04); IMM GRAN% 0.3 % (0.0-0.5); LYMPH# 2.55 X1000 (1.2-3.4); LYMPH% 23.2 % (20.5-51.1); MCHC 33.4 g/dL (33-37); MCV 95.9 FL (81-99); MONO# 0.66 X1000 (0.11-0.59); MPV 10.5 FL (7.4-10.4); NEUT% 69.4 % (42.2-75.2); PLT 210 X1000 (130-400); RBC 4.12 XMIL (4.2-5.4)
[2016-12-06 07:10] LABS: AGAP 15; ALBUMIN 3.9 g/dL (3.5-5.0); ALKALINE PHOSPHATASE 83 U/L (32-104); BUN 8 mg/dL (8-22); CHLORIDE 110 mmol/L (98-107); COSMO 287; GOT 15 U/L (10-30); GPT 28 U/L (10-36); POTASSIUM 3.6 mmol/L (3.5-5.1); SODIUM 144 mmol/L (136-145); TCO2 19 mmol/L (25-35); TOTAL BILIRUBIN 0.26 mg/dL (0.20-1.00); TOTAL PROTEIN 6.9 g/dL (6.3-8.3)
[2016-12-06] MEDS: SERAX PO SCH ×4 (08:55→20:41)
[2016-12-06] MEDS: CYMBALTA PO SCH (08:55)
[2016-12-06] MEDS: PLAVIX PO SCH (08:55)
[2016-12-06] MEDS: ASPIRIN PO SCH (08:55)
[2016-12-06] MEDS: PRINIVIL PO SCH (08:56)
[2016-12-06] MEDS: PATIENT'S OWN MED PO SCH ×2 (08:56)
[2016-12-06] MEDS: TYLENOL WITH CODEINE #3 PO PRN ×2 (11:24→22:44)
--- NOTE | 2016-12-06 15:45 | PROGRESS NOTE ---
DATE: 12/06/2016 SUBJECTIVE: This patient states that she feels better today. She is tolerating p.o. She still continues with slurred speech and numbness sensation but compared with yesterday it is better. I had a conversation with this patient about rehab center and she agreed with this. I already talked to the social worker masters about finding a place for this patient so she can get physical activity. No family members at the bedside. I called again to [facility] to see if we can transfer this patient over but they do not have a bed is available. OBJECTIVE: Vital Signs: Temperature 99.2 degrees, pulse 83, respiratory rate 18, blood pressure 152/82. O2 saturation 98 on room air. HEENT: Head normocephalic. No trauma. PERRLA. Mild right facial droop noted. Neck: Supple. No JVD. No masses. Central trachea. Cardiovascular: RRR. No murmurs. No gallops or rubs. Chest: Clear to auscultation. No wheezing. No rales. Abdomen: Soft, nontender, nondistended. No hepatosplenomegaly. Extremities: No edema. No clubbing. No cyanosis. Neurological: The patient has right side hemiparesis and right facial droop noted. Also she has some dysarthria. This patient is complaining of left hand numbness but compared with yesterday she feels better. LABORATORY: WBC 10.9, hemoglobin 13.2, hematocrit 39.5, platelets 210,000. Sodium 144, potassium 3.6, chloride 110, bicarbonate 19. BUN 8, creatinine 0.6, glucose 127, calcium 9. ASSESSMENT AND PLAN: 1. History of CVA with right-sided hemiparesis, this is old. No acute changes but she is complaining of left arm numbness and apparently the slurred speech has been getting worse but compared with yesterday she feels a little bit better. No new hemorrhagic lesion noted on the CT scan. We cannot do an MRI or MRA of the head because this patient has a left metallic implant device posterior to the left ear. We will follow the recommendations of Neurology Department. 2. Seizure disorder. Apparently this patient has been getting seizures at home. She has been evaluated by Neurology Department. We will continue with the same medication for now. She is not having any seizure activity during this hospitalization. 3. Bipolar disorder. Continue with the same management. 4. History of asthma. She is not complaining of shortness of breath or wheezing. Continue to monitor. 5. Gastroesophageal reflux disease. Patient is on pantoprazole daily. We will continue with the same management for now.
--- NOTE | 2016-12-06 20:19 | Carotid Study ---
DATE: 12/03/2016 PROCEDURE: Carotid duplex imaging. REFERRING PHYSICIAN: Vinod Rivera MD INTERPRETING PHYSICIAN: Domenic Chaudhry MD TECH: Kamuela INDICATIONS: The patient has had a CVA with slurred speech. OBSERVED DATA RIGHT LEFT Brachial Blood Pressure Carotid Pulse Bruits: Carotid/Sub DIAGRAM OF ULTRASOUND IMAGING R L RIGHT INT EXT INT EXT LEFT Jim (cm/s) Jim (cm/s) Subclavian 92/3 Subclavian 98/0 CCA Proximal 70/15 CCA Proximal 92/21 CCA Distal 67/19 CCA Distal 71/19 Bulb 52/13 Bulb 60/21 ICA Proximal 47/19 ICA Proximal 39/13 ICA Mid 65/26 ICA Mid 48/18 ICA Distal 97/31 ICA Distal 60/26 ECA 65/7 ECA 79/18 Vertebral 35/6 and antegrade Vertebral 43/13 and antegrade ICA/CCA Ratio 1.4 ICA/CCA Ratio 0.65 % Stenosis 0-39 % Stenosis 0.39 PHYSICIAN INTERPRETATION: No significant plaque disease identified. There is antegrade vertebral flow bilaterally.
[2016-12-06] MEDS: LIPITOR PO SCH (20:42)
[2016-12-07] MEDS: KEPPRA 750 MG in NS 100 ML IV SCH ×2 (01:20→13:59)
[2016-12-07] MEDS: VIMPAT IV SCH ×2 (05:40→17:50)
[2016-12-07] MEDS: LOVENOX SUBQ SCH ×3 (05:40→23:38)
[2016-12-07] MEDS: NS IV SCH ×2 (05:40→17:50)
[2016-12-07 07:42] LABS: MANUAL DIFF NEEDED? NO
[2016-12-07 07:49] LABS: BASO% 0.4 % (0.0-0.8); EOS# 0.13 X1000 (0.0-0.7); EOS% 1.4 % (0.0-10.0); HEMATOCRIT 37.9 % (37.0-47.0); HEMOGLOBIN 12.6 g/dL (12.0-16.0); IMM GRAN# 0.02 X1000 (0.0-0.04); IMM GRAN% 0.2 % (0.0-0.5); LYMPH# 2.91 X1000 (1.2-3.4); LYMPH% 30.7 % (20.5-51.1); MCH 31.7 PG (27-31); MCHC 33.2 g/dL (33-37); MCV 95.2 FL (81-99); MONO# 0.61 X1000 (0.11-0.59); MONO% 6.4 % (1.7-9.3); MPV 10.6 FL (7.4-10.4); NEUT% 60.9 % (42.2-75.2); PLT 195 X1000 (130-400); RBC 3.98 XMIL (4.2-5.4)
[2016-12-07 08:01] LABS: AGAP 13; ALBUMIN 3.7 g/dL (3.5-5.0); ALKALINE PHOSPHATASE 72 U/L (32-104); BUN 7 mg/dL (8-22); CALCIUM 8.7 mg/dL (8.8-10.2); CHLORIDE 110 mmol/L (98-107); COSMO 285; GOT 12 U/L (10-30); GPT 22 U/L (10-36); POTASSIUM 3.7 mmol/L (3.5-5.1); SODIUM 144 mmol/L (136-145); TCO2 21 mmol/L (25-35); TOTAL BILIRUBIN 0.35 mg/dL (0.20-1.00); TOTAL PROTEIN 6.6 g/dL (6.3-8.3)
[2016-12-07] MEDS: TYLENOL WITH CODEINE #3 PO PRN ×3 (08:12→20:01)
[2016-12-07] MEDS: PLAVIX PO SCH (08:50)
[2016-12-07] MEDS: PRINIVIL PO SCH (08:50)
[2016-12-07] MEDS: CYMBALTA PO SCH (08:50)
[2016-12-07] MEDS: SERAX PO SCH ×4 (08:50→20:07)
[2016-12-07] MEDS: ASPIRIN PO SCH (08:50)
[2016-12-07] MEDS: PATIENT'S OWN MED PO SCH ×2 (08:54→08:55)
--- NOTE | 2016-12-07 13:47 | PROGRESS NOTE ---
DATE: 12/07/2016 SUBJECTIVE: This patient states that she is feeling about the same. She is not having any nausea, vomiting, diarrhea, constipation. This patient has been complaining of right shoulder pain, mostly when she moves the shoulder. We are waiting for placement. To be able to transfer this patient to a rehab center. OBJECTIVE: Vital Signs: Temperature 98, pulse 87, respiratory rate 23, blood pressure 156/105, oxygen saturation 99 on room air. HEENT: Head normocephalic. No trauma. PERRLA. Mild right facial drop noted. Neck: Supple. No JVD. No masses. Central trachea. Cardiovascular: RRR. No murmurs. Chest: Clear to auscultation. No wheezing. No rales. Abdomen: Soft, nontender, nondistended. No hepatosplenomegaly. Obese. Extremities: No edema. No clubbing. No cyanosis. Neurological: The patient has right side hemiparesis and right facial droop noted. Also she has some dysarthria, she is hard of hearing. This patient has been complaining of left hand numbness, but compared with the admission is much better. LABORATORY: WBC 9.4, hemoglobin 12.6, hematocrit 37.9, platelets 195. Sodium 144, potassium 3.7, chloride 110, bicarbonate 21, BUN 7, creatinine 0.5, glucose 100, calcium 8.7. ASSESSMENT AND PLAN: 1. History of cerebrovascular accident with right-sided hemiparesis. This is old. Since admission this patient has been complaining of left arm numbness and apparently the slurred speech has been getting worse. But compared with the admission, she is feeling much better. We cannot perform an MRI or MRA of the head because the patient has a left metallic implant device posterior to the left ear. 2. Seizure disorder. Apparently, this patient has been getting seizures at home. She has been evaluated by Neurology department. We will continue with the same medication for now. She is not having any seizure activity during this hospitalization. 3. Bipolar disorder. Continue with the same management. 4. History of asthma. She is not complaining of shortness of breath or wheezing. Continue to monitor. 5. Gastroesophageal reflux disease. This patient is on pantoprazole daily. We will continue with the same management.
[2016-12-07] MEDS: PROTONIX PO SCH (18:57)
[2016-12-07] MEDS: LIPITOR PO SCH (20:01)
[2016-12-08] MEDS: KEPPRA 750 MG in NS 100 ML IV SCH (01:17)
[2016-12-08] MEDS: TYLENOL WITH CODEINE #3 PO PRN ×2 (05:00→11:46)
[2016-12-08] MEDS: NS IV SCH ×2 (05:33→16:39)
[2016-12-08] MEDS: VIMPAT IV SCH ×2 (05:33→16:39)
[2016-12-08] MEDS: PROTONIX PO SCH (05:59)
[2016-12-08 07:14] LABS: MANUAL DIFF NEEDED? NO
[2016-12-08 07:20] LABS: BASO% 0.2 % (0.0-0.8); EOS# 0.21 X1000 (0.0-0.7); EOS% 2.3 % (0.0-10.0); HEMATOCRIT 38.2 % (37.0-47.0); HEMOGLOBIN 12.7 g/dL (12.0-16.0); LYMPH# 2.37 X1000 (1.2-3.4); LYMPH% 25.6 % (20.5-51.1); MCH 31.6 PG (27-31); MCHC 33.2 g/dL (33-37); MONO# 0.62 X1000 (0.11-0.59); MONO% 6.7 % (1.7-9.3); MPV 10.5 FL (7.4-10.4); NEUT% 65.2 % (42.2-75.2); PLT 195 X1000 (130-400); RBC 4.02 XMIL (4.2-5.4)
[2016-12-08 07:46] LABS: AGAP 13; BUN 12 mg/dL (8-22); CALCIUM 8.9 mg/dL (8.8-10.2); CHLORIDE 109 mmol/L (98-107); COSMO 287; POTASSIUM 3.9 mmol/L (3.5-5.1); SODIUM 144 mmol/L (136-145); TCO2 22 mmol/L (25-35)
[2016-12-08] MEDS: PLAVIX PO SCH (08:32)
[2016-12-08] MEDS: ASPIRIN PO SCH (08:32)
[2016-12-08] MEDS: PRINIVIL PO SCH (08:32)
[2016-12-08] MEDS: CYMBALTA PO SCH (08:32)
[2016-12-08] MEDS: SERAX PO SCH ×3 (08:33→16:39)
[2016-12-08] MEDS: PATIENT'S OWN MED PO SCH ×2 (08:35→08:36)
--- NOTE | 2016-12-08 14:13 | DISCHARGE SUMMARY ---
ADMISSION DATE: 12/03/2016 DISCHARGE DATE: 12/08/2016 CONSULTATIONS: Dr. Deana Echevarria III, with Neurology. PERTINENT PROCEDURES: Head CT showed no visible acute processes, no hemorrhage or mass effect, a metallic implant device posterior to the left ear which produces artifact limiting detail beneath the device. Carotid Doppler showed no significant plaque disease identified. There is antegrade bilateral flow. Echocardiogram: A difficult study. EF was 60%. No diastolic dysfunction. DISCHARGE DIAGNOSES: 1. Cerebrovascular accident with right-sided hemiparesis history. This is old. Since admission, patient was complaining of left arm numbness and apparently slurred speech that had gotten worse, but compared with admission, patient is feeling better. Unable to perform MRI or MRA due to the left metallic implant device posterior to the left ear. The patient is improving. Neurology following. 2. Seizure disorder. Continue with home medications. Again, evaluated by Neurology. Going to rehabilitation . 3. Bipolar disorder. Continue with same medications. 4. Asthma without any shortness of breath. 5. Gastroesophageal reflux disease. Continue Protonix daily. HOSPITAL COURSE: Briefly, Ms Meyer is a 56-year-old female with a history of cerebrovascular accident with right-sided hemiparesis, deafness with cochlear implant, history of bipolar, seizure disorder, asthma, and GERD. Patient was reportedly walking and talking as per her normal prior to having an episode where she had altered mentation and shaking of her head, after which she was unresponsive. According to the son, after this she "went out," meaning that she fell backwards onto the bed and did not respond. Since that time, she has had right-sided facial asymmetry which was greater than normal and right upper and lower extremities were flaccid on examination. CT of the head was performed that did not show intracranial hemorrhage or acute CVA, but it was limited due to the patient's implant. Again, not a candidate for MRI or MRA due to the cochlear implant. The patient was admitted to the medical floor, continued on her Plavix and aspirin. Echocardiogram and carotids were unremarkable. With a Neurology consult, she was started on statin therapy with neurologic checks. Dr. Echevarria did see the patient on Monday, on 12/05/2016. He felt that the negative CT was reassuring, felt maybe if this was postictal hemiparesis we should see her improve with time, and continue on her current seizure medicine. Gamb Cutter was consulted for rehab placement. The patient has been stable awaiting a rehab bed. She is being discharged to rehabilitation. VITAL SIGNS ON DISCHARGE: Temperature is 97.9 degrees, heart rate 87, respirations 20, blood pressure 124/74, O2 saturation is 98% on room air. DISCHARGE DIET: Regular. DISCHARGE MEDICATIONS: 1. Zanaflex 4 mg p.o. 4 times a day. 2. Aspirin 81 mg p.o. daily. 3. Protonix 40 mg p.o. daily. 4. Plavix 75 mg p.o. daily. 5. Tylenol No. 3 one each p.o. q.6 hours. 6. Briviact 50 mg p.o. daily. 7. Cymbalta 60 mg p.o. q.a.m. 8. Keppra 750 mg p.o. b.i.d. 9. Vimpat 100 mg p.o. b.i.d. 10. Lipitor 40 mg p.o. at bedtime. 11. Prinivil 10 mg p.o. daily. 12. Serax 30 mg 4 times a day. 13. Trokendi XR 50 mg p.o. at bedtime. FOLLOWUP: The patient is being discharged to rehabilitation. She will need to follow up with her primary care physician, Dr. Yuri Chaudhry, after rehabilitation as well as Dr. Deana Echevarria. Patient can return to the ED for any worsening of symptoms. Discharge Time Thirty minutes. Dictated by MARVIN Skelton for Vinod Rivera MD
[2016-12-08 16:14] VITALS: BP 146/91
[2016-12-08] MEDS ORDERED: KEPPRA PO SCH (21:00)
== END 2016-12-08 17:54 | DRG 57 ==
LOC: EDBD → ED 16:47 → 3N 21:22
PROVIDERS: ATTEND Internal Medicine
DX: I69.351 Hemiplegia and hemiparesis following cerebral infarction affecting right dominant side (principal); E66.9 Obesity, unspecified; G40.909 Epilepsy, unspecified, not intractable, without status epilepticus; F31.9 Bipolar disorder, unspecified; J45.909 Unspecified asthma, uncomplicated; K21.9 Gastro-esophageal reflux disease without esophagitis; Z96.21 Cochlear implant status; F41.9 Anxiety disorder, unspecified; Z98.1 Arthrodesis status; Z87.891 Personal history of nicotine dependence; Z79.899 Other long term (current) drug therapy; Z79.02 Long term (current) use of antithrombotics/antiplatelets; Z79.82 Long term (current) use of aspirin; Z68.34 Body mass index [BMI] 34.0-34.9, adult
CPT/HCPCS: 70450; 71010; 80048; 80053; 80061; 81001; 82948; 83721; 84484; 85025; 85610; 85730; 93306; 93880; 94761; C9254; G0480; J1170; J1650; J1953; J7030; P9612; 80324; 80345; 80346; 80349; 80353; 80358; 80361; 80365; 83992; 92610-GN; 97110-GP; 97116-GP; 97530-GP